=== PATIENT | female | born 1935 | race Asian ===

== ENCOUNTER 2024-12-28 14:06 | Inpatient (IN) | payer MEDICARE, OTHER ==
[~2024-12-28] VITALS: Ht 162.6 cm; Wt 64.0 kg
[~2024-12-28 14:06] MED LIST: ASPI-1420 PO; DIVA-76; DIVA250T4 PO; FAMO20TA8 PO; IBAN150T16 PO; LEVO50TA PO; MEGE400O5; MEMA21CA PO; RIVA1PAT3 TD; SERT50TA12 PO; SIMV20TA2 PO; ZOLP10TA6 PO
[2024-12-28] MEDS: DOXYCYCLINE HYCLATE (100 MG) 100 MG TABLET PO ONE (15:00)
[2024-12-28 15:15] VITALS: O2SAT 94
[2024-12-28] MEDS: ALBUTEROL FS 2.5 MG/3 ML VIAL.NEB NEB ONE (15:15)
[2024-12-28] MEDS: IPRATROPIUM NEB FS 0.5 MG/2.5 ML AMPUL.NEB NEB ONE (15:15)
[2024-12-28] MEDS ORDERED: IPRATROPIUM NEB FS 0.5 MG/2.5 ML AMPUL.NEB ONE (15:17)
[2024-12-28] MEDS ORDERED: ALBUTEROL FS 2.5 MG/3 ML VIAL.NEB ONE (15:17)
[2024-12-28] MEDS ORDERED: methylPREDNISolone SOD SUCC 125 MG/2ML VIAL ONE (15:22)
[2024-12-28] MEDS: methylPREDNISolone SOD SUCC 125 MG/2ML VIAL IV ONE (15:27)
[2024-12-28] MEDS ORDERED: DOXYCYCLINE HYCLATE (100 MG) 100 MG TABLET ONE (15:29)
[2024-12-28 15:31] VITALS: O2SAT 98
[2024-12-28 15:36] LABS: CALCIUM, SERUM 8.7 mg/dL (8.5-10.1); CREATININE 1.7 mg/dL (0.6-1.3)
[2024-12-28] MEDS: CEFTRIAXONE 1GM BAG (ER ONLY) 50 ML IV ONE (15:55)
[2024-12-28] MEDS: IV NS 0.9% 1,000 ML BAG IV ONE (15:56)
[2024-12-28 16:02] LABS: BASOPHILS % (AUTO) 0.2 % (0.0-2.0); EOSINOPHILS # (AUTO) 0.1 K/uL (0.0-0.7); EOSINOPHILS % (AUTO) 1.5 % (0.0-6.0); HEMATOCRIT 41 % (33-45); HEMOGLOBIN 13.6 g/dL (11.5-14.8); LYMPHOCYTES # (AUTO) 2.7 K/uL (0.8-4.8); MEAN CORPUSCULAR HEMOGLOBIN 32 PG (26.0-33.0); MEAN CORPUSCULAR HGB CONC 34 g/dl (31.0-36.0); MEAN CORPUSCULAR VOLUME 94 fL (82-100); MONOCYTES # (AUTO) 0.5 K/uL (0.1-1.30); MONOCYTES % (AUTO) 9.6 % (2.0-12.0); NEUTROPHILS % (AUTO) 37.7 % (43.0-81.0); PLATELET COUNT (AUTO) 152 K/uL (150-450); RED CELL DISTRIBUTION WIDTH 13.6 % (11.5-15.0); WHITE BLOOD COUNT (AUTO) 5.2 K/uL (4.3-11.0)
[2024-12-28] MEDS ORDERED: BENA10TA74 PO (16:13)
[2024-12-28] MEDS ORDERED: GUAI120013 PO (16:13)
[2024-12-28] MEDS ORDERED: FOLI0.4T6 PO (16:13)
[2024-12-28] MEDS ORDERED: DOXY100T2 PO (16:13)
[2024-12-28] MEDS ORDERED: MEMA21CA2 PO (16:13)
[2024-12-28] MEDS ORDERED: METF-440 PO (16:13)
[2024-12-28] MEDS ORDERED: RALO60TA14 PO (16:13)
[2024-12-28] MEDS ORDERED: LEVO50TA PO (16:13)
[2024-12-28] MEDS ORDERED: CHOL200026 PO (16:13)
[2024-12-28] MEDS ORDERED: PROM118S5 PO (16:13)
[2024-12-28] MEDS ORDERED: ATOR20TA PO (16:13)
[2024-12-28] MEDS ORDERED: SERT50TA PO (16:13)
[2024-12-28] MEDS ORDERED: AMLO5TAB4 PO (16:13)
[2024-12-28] MEDS ORDERED: AMOX1TAB16 PO (16:13)
[2024-12-28] MEDS ORDERED: ONDANSETRON HCL/PF 4 MG/2 ML VIAL IVP PRN (16:30)
[2024-12-28] MEDS ORDERED: ACETAMINOPHEN 325 MG TABLET PO PRN (16:30)
[2024-12-28] MEDS ORDERED: MAGNESIUM HYDROXIDE 30 ML UDC PO PRN (16:30)
[2024-12-28] MEDS ORDERED: D-METHORPHAN HB/PROMETH HCL 5 ML UDC PO PRN (18:30)
[2024-12-28 20:00] VITALS: BP 137/63; TEMP 97.5; O2SAT 95
[2024-12-28] MEDS: IV NS 0.9% 1,000 ML IV PRN (21:56)
[2024-12-29] VITALS (7 sets, daily range): BP systolic 119–153; BP diastolic 56–90; TEMP 97.5–98.2; O2SAT 93–100
[2024-12-29] MEDS: Z GUARD REMEDY 4 OZ OINT TP PRN (05:48)
[2024-12-29 06:42] LABS: BASOPHILS % (AUTO) 0.1 % (0.0-2.0); HEMATOCRIT 36 % (33-45); HEMOGLOBIN 12.4 g/dL (11.5-14.8); LYMPHOCYTES # (AUTO) 1.9 K/uL (0.8-4.8); LYMPHOCYTES % (AUTO) 44.4 % (20.0-44.0); MEAN CORPUSCULAR HEMOGLOBIN 33 PG (26.0-33.0); MEAN CORPUSCULAR HGB CONC 34 g/dl (31.0-36.0); MEAN CORPUSCULAR VOLUME 96 fL (82-100); MONOCYTES # (AUTO) 0.1 K/uL (0.1-1.30); MONOCYTES % (AUTO) 2.3 % (2.0-12.0); NEUTROPHILS # (AUTO) 2.2 K/uL (1.8-8.9); NEUTROPHILS % (AUTO) 53.2 % (43.0-81.0); PLATELET COUNT (AUTO) 147 K/uL (150-450); RED CELL DISTRIBUTION WIDTH 13.7 % (11.5-15.0); WHITE BLOOD COUNT (AUTO) 4.2 K/uL (4.3-11.0)
[2024-12-29 06:58] LABS: CALCIUM, SERUM 8.3 mg/dL (8.5-10.1); CREATININE 1.7 mg/dL (0.6-1.3); MAGNESIUM 2.1 mg/dL (1.8-2.4); PHOSPHORUS 3.8 mg/dL (2.5-4.9); POTASSIUM 4.3 mmol/L (3.5-5.1)
[2024-12-29 07:20] LABS: THYROID STIMULATING HORMONE 1.83 uIU/mL (0.358-3.74)
[2024-12-29] MEDS: LEVOTHYROXINE SODIUM 50 MCG TABLET PO SCH (08:04)
[2024-12-29] MEDS: ATORVASTATIN 10 MG TABLET PO SCH (08:04)
[2024-12-29] MEDS: MEMANTINE HCL 5 MG TABLET PO SCH ×2 (08:04→17:14)
[2024-12-29] MEDS: GUAIFENESIN LA 600 MG TABLET.SA PO SCH (08:04)
[2024-12-29] MEDS: FOLIC ACID 1 MG TABLET PO SCH (08:05)
[2024-12-29] MEDS: CHOLECALCIFEROL 1,000 UNIT TABLET (VIT D3) PO SCH (08:05)
[2024-12-29] MEDS: SERTRALINE HCL 50 MG TABLET PO SCH (08:05)
[2024-12-29] MEDS: BENAZEPRIL HCL 10 MG TABLET PO SCH (08:05)
[2024-12-29] MEDS: AMLODIPINE BESYLATE 5 MG TABLET PO SCH (08:05)
[2024-12-29] MEDS: RALOXIFENE 60 MG TABLET PO SCH (08:11)
[2024-12-29] MEDS: ALBUTEROL FS 2.5 MG/0.5 ML VIAL.NEB NEB SCH (09:00)
[2024-12-29] MEDS ORDERED: METFORMIN 500 MG TABLET PO SCH (09:00)
[2024-12-29] MEDS ORDERED: DEXTROSE 50%-WATER 50 ML DISP.SYRIN IV PRN (09:00)
[2024-12-29] MEDS: BLOOD SUGAR DIAGNOSTIC 1 EACH STRIP VI SCH (11:42)
[2024-12-29] MEDS: INSULIN REGULAR, HUMAN 100 UNIT/ML 3 ML VIAL SQ PRN (11:43)
[2024-12-29] MEDS: *INSULIN REGULAR(HUMULIN R)HUM 100 UNIT/ML VIAL SQ PRN (23:02)
[2024-12-30] VITALS (12 sets, daily range): BP systolic 133–152; BP diastolic 53–100; TEMP 98–98.6; O2SAT 94–99
[2024-12-30] MEDS ORDERED: ALBUTEROL FS 2.5 MG/0.5 ML VIAL.NEB NEB PRN (00:30)
[2024-12-30] MEDS: ALBUTEROL FS 2.5 MG/0.5 ML VIAL.NEB NEB SCH (07:26)
[2024-12-30] MEDS: MAG HYDROX/AL HYDROX/SIMETH 30 ML UDC PO PRN (12:47)
[2024-12-31] VITALS (7 sets, daily range): BP systolic 156; BP diastolic 90; TEMP 97.9; O2SAT 97–98
[2024-12-31] MEDS: ZOLPIDEM TARTRATE 5 MG TABLET PO PRN (00:23)
[2024-12-31 07:15] LABS: APPEARANCE,URINE CLEAR (CLEAR); BILIRUBIN,URINE NEGATIVE (NEGATIVE); BLOOD, URINE TRACE-INTA Ery/uL (NEGATIVE); COLOR,URINE YELLOW (YELLOW); KETONES,URINE NEGATIVE (NEGATIVE); LEUKOCYTE ESTERASE ,URINE NEGATIVE (NEGATIVE); NITRITE, URINE POSITIVE (NEGATIVE); PROTEIN,URINE 2+ mg/dl (NEGATIVE); UGLUCOSE TRACE mg/dL (NEGATIVE); UROBILINOGEN,URINE 0.2 EU/dL (0.2)
[2024-12-31 07:18] LABS: BASOPHILS % (AUTO) 0.2 % (0.0-2.0); EOSINOPHILS % (AUTO) 0.4 % (0.0-6.0); HEMATOCRIT 36 % (33-45); HEMOGLOBIN 12.3 g/dL (11.5-14.8); LYMPHOCYTES # (AUTO) 2.5 K/uL (0.8-4.8); LYMPHOCYTES % (AUTO) 29.7 % (20.0-44.0); MEAN CORPUSCULAR HEMOGLOBIN 32 PG (26.0-33.0); MEAN CORPUSCULAR HGB CONC 34 g/dl (31.0-36.0); MEAN CORPUSCULAR VOLUME 94 fL (82-100); MONOCYTES # (AUTO) 0.5 K/uL (0.1-1.30); MONOCYTES % (AUTO) 5.4 % (2.0-12.0); NEUTROPHILS # (AUTO) 5.4 K/uL (1.8-8.9); NEUTROPHILS % (AUTO) 64.3 % (43.0-81.0); PLATELET COUNT (AUTO) 162 K/uL (150-450); RED BLOOD CELL COUNT(AUTO) 3.88 MIL/uL (4.0-5.2); RED CELL DISTRIBUTION WIDTH 13.4 % (11.5-15.0); WHITE BLOOD COUNT (AUTO) 8.4 K/uL (4.3-11.0)
[2024-12-31 07:41] LABS: URINE TOTAL PROTEIN 77.3 mg/dL (0-11.9)
[2024-12-31 07:44] LABS: ALBUMIN 3.1 g/dL (3.4-5.0); BILIRUBIN,TOTAL 0.5 mg/dL (0.2-1.0); CALCIUM, SERUM 8.2 mg/dL (8.5-10.1); CREATININE 1.3 mg/dL (0.6-1.3); MAGNESIUM 1.9 mg/dL (1.8-2.4); PHOSPHORUS 2.8 mg/dL (2.5-4.9); POTASSIUM 3.6 mmol/L (3.5-5.1); TOTAL PROTEIN, SERUM 7.3 g/dL (6.4-8.2)
[2024-12-31 07:54] LABS: ADD URINE CULTURE YES; BACTERIA,URINE Few /HPF (None Seen); RBC,URINE 0-2 /HPF (0-2)
[2025-01-01 08:11] LABS: PTH, INTACT 41 pg/mL (15-65)
[2025-01-01 10:09] LABS: *SPE A/G RATIO 0.9 (0.7-1.7); *SPE ALBUMIN 3.1 g/dL (2.9-4.4); *SPE ALPHA-1-GLOBULIN 0.3 g/dL (0.0-0.4); *SPE ALPHA-2-GLOBULIN 0.8 g/dL (0.4-1.0); *SPE GLOBULIN, TOTAL 3.5 g/dL (2.2-3.9); *SPE M-SPIKE Not Observed g/dL (Not Observed); *SPE PROTEIN TOTAL 6.6 g/dL (6.0-8.5); *SPEGAMMA GLOBULIN 1.4 g/dL (0.4-1.8)
== END 2024-12-31 18:44 | DRG 682 ==
LOC: ER 14:14 → MED 18:04 → TELE 12-29 12:36 → MED 12-30 06:20
PROVIDERS: ADMIT Internal Medicine; ATTEND Internal Medicine
DX: N17.9 Acute kidney failure, unspecified (principal); G93.41 Metabolic encephalopathy; I21.A1 Myocardial infarction type 2; F03.90 Unspecified dementia, unspecified severity, without behavioral disturbance, psychotic disturbance, mood disturbance, and anxiety; Z87.01 Personal history of pneumonia (recurrent); E03.9 Hypothyroidism, unspecified; E78.5 Hyperlipidemia, unspecified; I10 Essential (primary) hypertension; M81.0 Age-related osteoporosis without current pathological fracture; M89.8X9 Other specified disorders of bone, unspecified site; R53.1 Weakness; R00.1 Bradycardia, unspecified; N18.9 Chronic kidney disease, unspecified; E83.9 Disorder of mineral metabolism, unspecified; I12.9 Hypertensive chronic kidney disease with stage 1 through stage 4 chronic kidney disease, or unspecified chronic kidney disease; Z79.84 Long term (current) use of oral hypoglycemic drugs
CPT/HCPCS: 36415; 71045-TC; 76770-TC; 80048-TC; 80053-TC; 81001; 82550-TC; 82962-TC; 83735-TC; 83970; 84100-TC; 84155; 84165; 84300-TC; 84443-TC; 84484-TC; 85025-TC; 87040-TC; 87086-TC; 93307-TC; 94761-TC; 94799-TC; 97110-TC; 97116-TC; 97530-TC; A4223; G0378; J1815; J2919; J7030